=== PATIENT | male | born 1970 | race Caucasian/White ===

== ENCOUNTER 2017-04-23 10:12 | Emergency (ER) | payer OTHER ==
[~2017-04-23] VITALS: Ht 193 cm; Wt 98.2 kg
[~2017-04-23 10:12] MED LIST: ACET-2404 PO; DIAZ5TAB3 PO; PER5A PO
[2017-04-23 10:14] VITALS: BP 147/100; PULSE 113; RESP 16; O2SAT 99
--- NOTE | 2017-04-23 10:36 | ED.REPORT ---
HPI-NVD Date of Service Apr 23, 2017 ED Provider: Aimee Cazares MD The pt is a 47 y/o male w/ a hx of hypothyroidism presenting to the ED due to dizziness. He was sent here by his PCP. The pt describes going to [place] 3- 4 weeks ago and began feeling nauseated, dizzy, and a loss of appetite 2 weeks ago. He then says he slept for a week. He was given anti-nausea pills 5 days ago which has decreased the nausea. The pt is still experiencing dizziness and is looking for reassurance before he goes back to work. Denies hematuria, fevers , coughs, or chills. The pt also reports experiencing muscle cramping for the last 6 months. Nursing Notes Stated Complaint: DEHYDRATION, LOW OXYGEN SATURATION Chief Complaint: Dizziness Nursing Notes Reviewed: Yes Allergies: Coded Allergies: No Known Allergies (Unverified , 04/23/17) Scheduled ACETAMINOPHEN-Expunged Drug, Do Not Renew! (TYLENOL-Expunged Drug, Do Not Renew! ) 500 Mg Tablet 500 MG PO PRN Diazepam-Expunged Drug, Do Not Renew! (Diazepam-Expunged Drug, Do Not Renew!) 5 Mg Tablet 5 MG PO PRN Oxycodone/APAP-Expunged Drug, Do Not Renew! (Roxicet 5/325-Expunged Drug, Do Not Renew!) 1 Tab Tablet 1 TAB PO PRN General Time Seen by MD: 10:34 Chief Complaint Other (Dizziness ) Hx Obtained From: Patient Arrived By: Walk-in Onset Occurred: More than a week ago... (2 weeks) Symptom Duration: Since onset Recent Healthcare: No recent hospitalization, Recent doctor visit Similar Sx Previous: No Past Medical History Past Medical History Hypothyroidism Past Surgical History Thyroidectomy Smoking History Current Every Day Smoker Social History Alcohol Use: 1-3 per day Drug Use: Denies drug use Ambulatory Status Independent Review of Systems Muscle cramping Constitutional: Denies: Chills, Fever Neurologic: Reports: Dizziness Complete sys rev & neg: except as marked. Respiratory: Denies: Non-productive cough Male: Denies Hematuria Physical Exam Initial Vital Signs Vital Signs (First) Date Time Temp Pulse Resp B/P Pulse Ox O2 Delivery O2 Flow Rate FiO2 04/23/17 10:14 36.7 113 16 147/100 99 Room Air Initial VS: Reviewed Head / Eyes: Atraumatic, Normocephalic, PERRL ENT: Mucous membranes moist, Conjunctiva normal, No scleral icterus Neck: Supple, Non-tender, Full range of motion Respiratory: Breath sounds normal, Clear to auscultation, No respiratory distress Cardiovascular: Regular rate & rhythm, Heart sounds normal, Intact distal pulses Neurologic: Alert, Oriented, Nonfocal Psychiatric: Mood/affect normal, Behavior normal, Normal thought content General/Constitutional: Awake, Alert, Well hydrated Behavior: Positive: Anxious Abdomen: Atraumatic, Soft, Non-tender Skin: No rash, Warm, Dry Healing bruise on R joseph Interpretation & Diagnostics Lab Results Interpretation Result Diagram: 04/23/17 1135 04/23/17 1135 Test 04/23/17 11:35 04/23/17 11:42 04/23/17 12:09 White Blood Count 4.2th/mm3 (3.8-10.1) Red Blood Count 4.10mil/mm3 (4.40-5.80) Hemoglobin 14.0g/dL (13.8-17.2) Hematocrit 40.5% (41.0-50.0) Mean Corpuscular Volume 98.8fL (81-100) Mean Corpuscular Hemoglobin 34.1pg (27.0-35.0) Mean Corpuscular Hemoglobin Concent 34.6% (32.0-37.0) Red Cell Distribution Width 14.1% (12.3-15.4) Platelet Count 165bil/L (150-400) Neutrophils (%) (Auto) 40.3% (40-74) Lymphocytes (%) (Auto) 40.6% (14-46) Monocytes (%) (Auto) 15.0% (4-12) Eosinophils (%) (Auto) 2.9% (0-5) Basophils (%) (Auto) 0.7% (0-3) Sodium Level 137mEq/L (134-144) Potassium Level 4.5mEq/L (3.5-5.2) Chloride Level 97mEq/L (97-108) Carbon Dioxide Level 23mmol/L (18-29) Blood Urea Nitrogen 15mg/dL (6-24) Creatinine 1.11mg/dL (0.76-1.27) Estimat Glomerular Filtration Rate 75mL/min (>59) Glucose Level 112mg/dL (60-99) Calcium Level 8.5mg/dL (8.5-10.1) Magnesium Level 2.0mg/dL (1.6-2.6) Total Bilirubin 0.6mg/dL (0.0-1.2) Aspartate Amino Transf (AST/SGOT) 175U/L (0-50) Alanine Aminotransferase (ALT/SGPT) 91U/L (0-44) Alkaline Phosphatase 132U/L (25-150) Total Protein 6.6g/dL (6.4-8.4) Albumin 4.1g/dL (3.4-5.0) Lipase 41U/L (13-60) Thyroid Stimulating Hormone (TSH) 1.890uIU/mL (0.450-4.500) Hold Ren Top Tube Received (Received) Urine Color Yellow (YELLOW) Urine Appearance Clear (CLEAR,HAZY) Urine pH 6.5 (5.0-8.0) Urine Specific [place] 1.015 (1.003-1.035) Urine Protein Negativemg/dL (NEG,TRACE) Urine Glucose (UA) Negativemg/dL (NEGATIVE) Urine Ketones Negativemg/dL (NEGATIVE) Urine Occult Blood Negative (NEGATIVE) Urine Nitrite Negative (NEGATIVE) Urine Bilirubin Negative (NEGATIVE) Urine Urobilinogen Normalmg/dL (NORMAL) Urine Leukocyte Esterase Negative (NEGATIVE) Urine RBC 0-2/hpf (0-2) Urine WBC 0-5/hpf (0-5) Urine Epithelial Cells Occasional/hpf (NONE-MOD) Urine Crystals None seen (NONE SEEN) Urine Bacteria None/hpf (NONE-FEW) Urine Hyaline Casts None/lpf (NONE) Urine Granular Casts None seen (NONE SEEN) Urine Waxy Casts None seen (NONE SEEN) Urine Red Blood Cell Casts None seen (NONE SEEN) Urine White Blood Cell Casts None seen (NONE SEEN) Urine Mucus None seen (None Seen) Urine Trichomonas None seen (NONE SEEN) Urine Yeast None (NONE SEEN) Urinalysis Comment None Urine Culture Reflexed Not indicated ECG Interpretation ECG Interpretation: Rate 92 NSR Time: 11:32 Interpreted by: ED physician Re-Eval/Medical Decision Source of Hx: Old records Re-Evaluation/Progress : Time of Eval: 14:00 Re-Evaluation/Progress Note: Pt rechecked. Informed pt of plan for treatment. Pt understands and agrees with plan for treatment. F/U instructions and RTER warnings given. All questions addressed. Counseled Regarding: Diagnosis, Lab results, Need for follow-up, When/why to return to ED Discharge & Departure Impression: Primary Impression: Elevated transaminase level Disposition: Home Discharge Condition All VS Reviewed: Yes Condition: Stable Additional Instructions: I am glad you are feeling better with some reassurance and a bit of saline and nausea medication. Lab tests were reassuring. You did have some liver tests were slightly elevated. Viruses can frequently do that. He was asking her primary care doctor to review this and another 3-6 months and make sure there is not more that needs attention. Thank you with your patience today and I hope you continued to feel well. Referrals: Luis Ferguson MD (PCP) Scribe Attestation Portions of this note were transcribed by Denny Calles. I, Dr. Cazares personally performed the history, physical exam and medical decision-making; I reviewed and confirmed the accuracy of the information in the transcribed note. copies to: Luis Ferguson MD, Shawna L MD Apr 23, 2017 10:36 Denny Calles Apr 23, 2017 12:40
[2017-04-23] MEDS ORDERED: 0.9% Sodium Chloride 1,000 ML IV ONE (11:24)
[2017-04-23] MEDS ORDERED: Ondansetron 2 mg/mL 2 mL Inj IVPUSH ONE (11:25)
[2017-04-23 11:46] LABS: BASOPHILS % (AUTO) 0.7 % (0-3); EOSINOPHILS % (AUTO) 2.9 % (0-5); Mean Corpuscular Hemoglobin 34.1 pg (27.0-35.0); Mean Corpuscular Volume 98.8 fL (81-100); NEUTROPHILS % (AUTO) 40.3 % (40-74); Platelet Count 165 bil/L (150-400)
[2017-04-23 12:37] VITALS: BP 137/96; PULSE 88; RESP 16; O2SAT 100
[2017-04-23 12:38] LABS: APPEARANCE,URINE CLEAR (CLEAR,HAZY); COLOR,URINE YELLOW (YELLOW)
[2017-04-23 12:39] LABS: OCCULT BLOOD,URINE NEGATIVE (NEGATIVE); PH,URINE 6.5 (5.0-8.0); UROBILINOGEN,URINE NORMAL (NORMAL)
[2017-04-23 14:09] VITALS: BP 131/68; PULSE 82; RESP 16; O2SAT 100
== END 2017-04-23 14:10 | disposition home or self-care (01) ==
LOC: SED 10:12
DX: R74.0 Nonspecific elevation of levels of transaminase and lactic acid dehydrogenase [LDH] (principal); E03.9 Hypothyroidism, unspecified; F17.200 Nicotine dependence, unspecified, uncomplicated
CPT/HCPCS: 36415; 80053; 81000; 83690; 83735; 84443; 85025; 93005; 96361; 96374; 99285; J2405; J7030